=== PATIENT | male | born 1950 | race American Indian/Alaskan Native ===

== ENCOUNTER 2017-07-17 10:20 | Outpatient (CLI) | payer MEDICARE ==
[2017-07-17] MEDS ORDERED: XYLOCAINE TOPICAL 4% TP ONE (11:12)
== END 2017-07-17 10:21 | disposition home or self-care (01) ==
LOC: WOUND 10:20
PROVIDERS: ATTEND Internal Medicine
DX: T87.89 Other complications of amputation stump (principal); I70.238 Atherosclerosis of native arteries of right leg with ulceration of other part of lower leg; E11.621 Type 2 diabetes mellitus with foot ulcer; L97.521 Non-pressure chronic ulcer of other part of left foot limited to breakdown of skin; E11.22 Type 2 diabetes mellitus with diabetic chronic kidney disease; I13.2 Hypertensive heart and chronic kidney disease with heart failure and with stage 5 chronic kidney disease, or end stage renal disease; I50.9 Heart failure, unspecified; N18.6 End stage renal disease; Z86.73 Personal history of transient ischemic attack (TIA), and cerebral infarction without residual deficits; Z98.49 Cataract extraction status, unspecified eye; Z87.891 Personal history of nicotine dependence; Z72.89 Other problems related to lifestyle; Y83.5 Amputation of limb(s) as the cause of abnormal reaction of the patient, or of later complication, without mention of misadventure at the time of the procedure
CPT/HCPCS: 11042; G0463

== ENCOUNTER 2017-07-24 10:50 | Outpatient (CLI) | payer MEDICARE ==
[2017-07-24] MEDS ORDERED: XYLOCAINE TOPICAL 4% TP ONE ×2 (11:28→11:35)
== END 2017-07-24 10:51 | disposition home or self-care (01) ==
LOC: WOUND 10:50
PROVIDERS: ATTEND Internal Medicine
DX: T87.89 Other complications of amputation stump (principal); I70.238 Atherosclerosis of native arteries of right leg with ulceration of other part of lower leg; E11.621 Type 2 diabetes mellitus with foot ulcer; L97.521 Non-pressure chronic ulcer of other part of left foot limited to breakdown of skin; E11.22 Type 2 diabetes mellitus with diabetic chronic kidney disease; I13.2 Hypertensive heart and chronic kidney disease with heart failure and with stage 5 chronic kidney disease, or end stage renal disease; I50.9 Heart failure, unspecified; I10 Essential (primary) hypertension; N18.6 End stage renal disease; Z99.2 Dependence on renal dialysis; Z86.73 Personal history of transient ischemic attack (TIA), and cerebral infarction without residual deficits; Z98.49 Cataract extraction status, unspecified eye; Z87.891 Personal history of nicotine dependence; Z72.89 Other problems related to lifestyle; Y83.5 Amputation of limb(s) as the cause of abnormal reaction of the patient, or of later complication, without mention of misadventure at the time of the procedure

== ENCOUNTER 2017-07-31 11:23 | Outpatient (CLI) | payer MEDICARE ==
[2017-07-31] MEDS ORDERED: XYLOCAINE TOPICAL 4% TP ONE ×2 (11:31→11:32)
== END 2017-07-31 11:24 | disposition home or self-care (01) ==
LOC: WOUND 11:23
PROVIDERS: ATTEND Internal Medicine
DX: T87.89 Other complications of amputation stump (principal); E11.621 Type 2 diabetes mellitus with foot ulcer; I70.238 Atherosclerosis of native arteries of right leg with ulceration of other part of lower leg; L97.521 Non-pressure chronic ulcer of other part of left foot limited to breakdown of skin; E11.22 Type 2 diabetes mellitus with diabetic chronic kidney disease; I13.2 Hypertensive heart and chronic kidney disease with heart failure and with stage 5 chronic kidney disease, or end stage renal disease; I50.9 Heart failure, unspecified; N18.6 End stage renal disease; Z99.2 Dependence on renal dialysis; Z86.73 Personal history of transient ischemic attack (TIA), and cerebral infarction without residual deficits; Z98.49 Cataract extraction status, unspecified eye; Z87.891 Personal history of nicotine dependence; Z72.89 Other problems related to lifestyle; Y83.5 Amputation of limb(s) as the cause of abnormal reaction of the patient, or of later complication, without mention of misadventure at the time of the procedure

== ENCOUNTER 2017-08-07 11:16 | Outpatient (CLI) | payer MEDICARE ==
[2017-08-07] MEDS ORDERED: XYLOCAINE TOPICAL 4% TP ONE ×2 (12:09→12:12)
== END 2017-08-07 11:17 | disposition home or self-care (01) ==
LOC: WOUND 11:16
PROVIDERS: ATTEND Internal Medicine
DX: I70.238 Atherosclerosis of native arteries of right leg with ulceration of other part of lower leg (principal); E11.621 Type 2 diabetes mellitus with foot ulcer; L97.521 Non-pressure chronic ulcer of other part of left foot limited to breakdown of skin; S91.301D Unspecified open wound, right foot, subsequent encounter; E11.22 Type 2 diabetes mellitus with diabetic chronic kidney disease; I13.2 Hypertensive heart and chronic kidney disease with heart failure and with stage 5 chronic kidney disease, or end stage renal disease; I50.9 Heart failure, unspecified; N18.6 End stage renal disease; Z86.73 Personal history of transient ischemic attack (TIA), and cerebral infarction without residual deficits; Z98.49 Cataract extraction status, unspecified eye; Z87.891 Personal history of nicotine dependence; Z72.89 Other problems related to lifestyle; X58.XXXD Exposure to other specified factors, subsequent encounter